=== PATIENT | female | born 1970 | race Caucasian/White ===

== ENCOUNTER 2017-10-04 09:38 | Emergency (ER) | payer OTHER ==
[~2017-10-04] VITALS: Ht 172.7 cm; Wt 137.0 kg
[~2017-10-04 09:38] MED LIST: ELIMITE 5% CREA60 GM TP; ERYTHROMYCIN O3.5 GM LEFT EYE; HYDROXYZINE HCL25 MG PO; MEDROL DOSEPAK4 MG PO; MOTRIN400 MG PO; NAPROSYN375 MG PO; SEROQUEL50 MG PO
[2017-10-04] MEDS ORDERED: BACTRIM,SEPT1 TABLET PO (10:55)
[2017-10-04 11:05] VITALS: BP 121/70
== END 2017-10-04 11:05 | disposition home or self-care (01) ==
LOC: EME 09:38
DX: L02.213 Cutaneous abscess of chest wall (principal)
CPT/HCPCS: 99281; 99283

== ENCOUNTER 2017-11-15 14:44 | Emergency (ER) | payer OTHER ==
[~2017-11-15] VITALS: Ht 172.7 cm; Wt 133.8 kg
[~2017-11-15 14:44] MED LIST changes: +BACTRIM,SEPT1 TABLET PO
[2017-11-15] MEDS ORDERED: MOTRIN800 MG PO (17:26)
[2017-11-15 17:48] VITALS: BP 101/60
== END 2017-11-15 17:49 | disposition home or self-care (01) ==
LOC: EME 14:44
DX: M17.12 Unilateral primary osteoarthritis, left knee (principal); M79.605 Pain in left leg; F31.9 Bipolar disorder, unspecified; F17.200 Nicotine dependence, unspecified, uncomplicated
CPT/HCPCS: 73564; 93971; 99281; 99283; J1885